=== PATIENT | female | born 1970 | race Caucasian/White ===

== ENCOUNTER 2018-12-27 20:51 | Emergency (ER) | payer OTHER ==
[~2018-12-27] VITALS: Ht 165.1 cm; Wt 72.0 kg
[2018-12-27] MEDS ORDERED: TETRACAINE 0.5% OPHTH DROPS 4ML RIGHTEYE ONE (22:15)
[2018-12-27] MEDS ORDERED: FLUORESCEIN SODIUM 1MG/STRIP RIGHTEYE ONE (22:15)
[2018-12-27 23:45] VITALS: BP 138/81
== END 2018-12-27 23:45 | disposition home or self-care (01) ==
LOC: ER 20:51 → EDBD 20:51 → ER 23:45
DX: H43.391 Other vitreous opacities, right eye (principal)
CPT/HCPCS: 99283